=== PATIENT | female | born 1985 | race Caucasian/White ===

== ENCOUNTER 2017-08-09 19:26 | Inpatient (IN) | payer MEDICAID ==
[2017-08-09] MEDS: LACTATED RINGER'S 500 ML IV (20:28)
[2017-08-09] MEDS ORDERED: CARBOPROST 250 MCG INJ IM (20:30)
[2017-08-09] MEDS ORDERED: BUTORPHANOL 2 MG INJ IV ×2 (20:30)
[2017-08-09] MEDS ORDERED: MISOPROSTOL 200 MCG TAB PR (20:30)
[2017-08-09] MEDS ORDERED: METHYLERGONOVINE 0.2 MG INJ IM (20:30)
[2017-08-09] MEDS ORDERED: OXYTOCIN 30 UNITS/LR 500 ML IV ×3 (20:30)
[2017-08-09] MEDS ORDERED: HYDROCODONE/APAP (5/325) TAB PO (20:30)
[2017-08-09] MEDS ORDERED: LIDOCAINE 1% (MPF) 30 ML INJ INJ (20:30)
[2017-08-09] MEDS ORDERED: IBUPROFEN 600 MG TAB PO (20:30)
[2017-08-09] MEDS: LACTATED RINGER'S 1,000 ML IV ×2 (21:18→22:59)
[2017-08-09] MEDS: AMPICILLIN 2 GM/NS (PMX) 100 ML IV (21:43)
[2017-08-09] MEDS: OXYTOCIN 30 UNITS/LR 500 ML IV (22:13)
[2017-08-09 22:29] LABS: ADD MAN DIFF? NO
[2017-08-09 22:49] LABS: WHITE BLOOD COUNT 8.5 10^3/ul (4.8-10.8)
[2017-08-09 22:49] LABS: BASOPHILS % 0.2 % (0.0-2.0); EOSINOPHILS # 0.1 10^3/ul (0.0-0.5); EOSINOPHILS % 0.7 % (0.0-7.0); HEMATOCRIT 34.9 % (37.0-47.0); HEMOGLOBIN 11.9 g/dl (12.0-16.0); LYMPHOCYTES # 1.7 10^3/ul (0.8-2.9); LYMPHOCYTES % 19.8 % (15.0-51.0); MEAN CORPUSCULAR HGB CONC 34.1 g/dl (32.0-37.0); MEAN CORPUSCULAR VOLUME 85.1 fl (82.0-101.0); MEAN PLATELET VOLUME 8.7 fl (7.4-10.4); MONOCYTE # 0.9 10^3/ul (0.3-0.9); MONOCYTES % 10.5 % (0.0-11.0); NEUTROPHIL # 5.7 10^3/ul (1.6-7.5); NEUTROPHILS % 67.9 % (39.0-77.0); PLATELET COUNT 384 10^3/UL (140-415); RED CELL DISTRIBUTION WIDTH 13.7 % (11.5-14.5)
[2017-08-09 22:54] LABS: INR 0.89; PROTIME 12.1 Sec (11.9-14.9); PT RATIO 0.9
[2017-08-09 22:55] LABS: PARTIAL THROMBOPLASTIN TIME 35.6 Sec (25.0-35.0)
[2017-08-09 22:58] LABS: GLUCOSE 86 mg/dl (70-220)
[2017-08-09 23:29] LABS: HEPATITIS B SURFACE ANTIGEN NEGATIVE (NEGATIVE)
[2017-08-10 00:08] LABS: HIV 1&2 ANTIBODY NEGATIVE (NEGATIVE)
[2017-08-10] MEDS: LACTATED RINGER'S 500 ML IV (00:28)
[2017-08-10] MEDS: AMPICILLIN 1 GM/NS (PMX) 50 ML IV (00:30)
[2017-08-10] MEDS: LACTATED RINGER'S 1,000 ML IV (00:52)
[2017-08-10] MEDS: OXYTOCIN 30 UNITS/LR 500 ML IV ×2 (01:40→01:56)
[2017-08-10] MEDS ORDERED: CARBOPROST 250 MCG INJ IM (04:30)
[2017-08-10] MEDS ORDERED: MISOPROSTOL 200 MCG TAB PR (04:30)
[2017-08-10] MEDS ORDERED: METHYLERGONOVINE 0.2 MG INJ IM (04:30)
[2017-08-10] MEDS ORDERED: OXYTOCIN 30 UNITS/LR 500 ML IV (04:30)
[2017-08-10] MEDS ORDERED: ZOLPIDEM 5 MG TAB PO (04:30)
[2017-08-10] MEDS ORDERED: OXYCODONE/ASPIRIN (4.88/325) TAB PO (04:30)
[2017-08-10] MEDS: LANOLIN 7 GM TUBE TOP (05:49)
[2017-08-10] MEDS: IBUPROFEN 600 MG TAB PO ×3 (05:49→17:50)
[2017-08-10] MEDS: SENNA/DOCUSATE NA (8.6MG/50MG) TAB PO ×2 (11:52→21:30)
[2017-08-10 15:05] LABS: RAPID PLASMA REAGIN NONREACTIVE (NR)
[2017-08-10] MEDS: BENZOCAINE 20% 56 ML SPRAY TOP (15:58)
[2017-08-10] MEDS: OXYCODONE/ASPIRIN (4.88/325) TAB PO (15:58)
[2017-08-10] MEDS: WITCH HAZEL/GLYCERIN PAD PR (15:59)
[2017-08-11] MEDS: IBUPROFEN 600 MG TAB PO ×4 (00:12→18:03)
[2017-08-11 08:58] LABS: ADD MAN DIFF? NO
[2017-08-11 09:16] LABS: WHITE BLOOD COUNT 8.2 10^3/ul (4.8-10.8)
[2017-08-11 09:16] LABS: BASOPHIL # 0.1 10^3/ul (0.0-0.1); BASOPHILS % 0.6 % (0.0-2.0); EOSINOPHILS # 0.2 10^3/ul (0.0-0.5); EOSINOPHILS % 1.9 % (0.0-7.0); HEMATOCRIT 35.6 % (37.0-47.0); LYMPHOCYTES # 2.4 10^3/ul (0.8-2.9); LYMPHOCYTES % 29.6 % (15.0-51.0); MEAN CORPUSCULAR HEMOGLOBIN 29.1 pg (29.0-33.0); MEAN CORPUSCULAR HGB CONC 33.7 g/dl (32.0-37.0); MEAN CORPUSCULAR VOLUME 86.4 fl (82.0-101.0); MEAN PLATELET VOLUME 8.4 fl (7.4-10.4); MONOCYTE # 0.6 10^3/ul (0.3-0.9); MONOCYTES % 6.9 % (0.0-11.0); NEUTROPHIL # 4.9 10^3/ul (1.6-7.5); NEUTROPHILS % 59.8 % (39.0-77.0); PLATELET COUNT 347 10^3/UL (140-415); RED BLOOD COUNT 4.12 10^6/ul (4.20-5.40); RED CELL DISTRIBUTION WIDTH 13.6 % (11.5-14.5)
[2017-08-11] MEDS: SENNA/DOCUSATE NA (8.6MG/50MG) TAB PO ×2 (11:23→21:48)
[2017-08-11] MEDS: INFLUENZA VIRUS VACCINE 0.5 ML (DISPENSING) IM* (11:25)
[2017-08-12] MEDS: IBUPROFEN 600 MG TAB PO ×3 (00:11→11:30)
[2017-08-12] MEDS: SENNA/DOCUSATE NA (8.6MG/50MG) TAB PO (09:09)
[2017-08-12] MEDS: DIPHTH/TET/ACEL PERTUSS (ADULT) 0.5 ML VIAL IM* (09:10)
[2017-08-14 12:47] LABS: RUBELLA ANTIBODY - IGM <20.00 AU/mL
== END 2017-08-12 15:18 | disposition home or self-care (01) | DRG 775 ==
LOC: OBT 19:26 → PP1 08-10 03:42 → L-D 19:27 → OBT 20:16 → L-D 20:16
PROVIDERS: Obstetrics & Gynecology
PROC: 10E0XZZ Delivery of Products of Conception, External Approach (ICD-10-PCS; principal; 2017-08-10)
DX: O80 Encounter for full-term uncomplicated delivery (principal); Z37.0 Single live birth; Z3A.39 39 weeks gestation of pregnancy
CPT/HCPCS: 36415; 62319; 82947; 85025; 85610; 85730; 86592; 86703; 86762; 86850; 86900; 86901; 87340; 90686; 90715